=== PATIENT | female | born 2000 | race Caucasian/White ===

== ENCOUNTER 2024-01-25 21:23 | Emergency (ER) | payer OTHER ==
[~2024-01-25] VITALS: Ht 170.2 cm; Wt 55.0 kg
[2024-01-25 21:31] VITALS: TEMP 98.8; O2SAT 100
[2024-01-26 01:25] VITALS: BP 100/54; PULSE 74; RESP 18
== END 2024-01-26 01:27 | disposition home or self-care (01) ==
LOC: ER 21:23
DX: R10.30 Lower abdominal pain, unspecified (principal); Z86.59 Personal history of other mental and behavioral disorders
CPT/HCPCS: 99283